=== PATIENT | male | born 1980 | race Two or more races ===

== ENCOUNTER 2017-12-19 04:01 | Inpatient (IN) | payer MEDICAID ==
[~2017-12-19] VITALS: Ht 167.6 cm; Wt 63.4 kg
[~2017-12-19 04:01] MED LIST: CHLO25CA10 PO; NO HOME MEDS; ONDA8TAB9 PO; PRED10TA PO
[2017-12-19 04:37] LABS: BASOPHILS % (AUTO) 0.4 % (0-1); EOSINOPHILS % (AUTO) 0.7 % (0-6); HEMATOCRIT 44.2 % (42.0-52.0); HEMOGLOBIN 15.6 g/dl (14.0-17.9); LYMPHOCYTES # (AUTO) 0.9 X10'3 (1.1-4.8); LYMPHOCYTES % (AUTO) 16.5 % (21-51); MEAN CORPUSCULAR HEMOGLOBIN 34.5 PG (27.0-31.0); MEAN CORPUSCULAR HGB CONC 35.2 % (33.0-36.5); MEAN CORPUSCULAR VOLUME 97.8 FL (78-98); MEAN PLATELET VOLUME 9.9 FL (7.4-10.4); MONOCYTES # (AUTO) 0.3 X10'3 (0-0.9); MONOCYTES % (AUTO) 6.5 % (2-12); NEUTROPHILS % (AUTO) 75.9 % (42-75); PLATELET COUNT 95 X10'3 (140-440); RED BLOOD COUNT 4.52 X10'6 (4.70-6.10); RED CELL DISTRIBUTION WIDTH 14.7 % (11.5-14.5); WHITE BLOOD COUNT 5.3 X10'3 (4.5-11.0)
[2017-12-19 04:46] LABS: INR 1.1 INR; PARTIAL THROMBOPLASTIN TIME 27 SECONDS (22-32); PROTHROMBIN TIME 11.5 SECONDS (9.0-12.0)
[2017-12-19 04:48] LABS: ALANINE AMINOTRANSFERASE 114 U/L (12-78); ALBUMIN/GLOBULIN RATIO 0.9 (1.1-1.5); ALKALINE PHOSPHATASE 215 IU/L (46-116); ANION GAP 14 (8-16); ASPARTATE AMINO TRANSFERASE 245 U/L (10-37); BILIRUBIN,TOTAL 4.1 MG/DL (0.1-1.0); BLOOD UREA NITROGEN 6 MG/DL (7-18); BUN/CREATININE RATIO 6.1 (5.4-32.0); CALCIUM 8.9 MG/DL (8.5-10.1); CHLORIDE 93 MMOL/L (99-107); CREATININE 0.98 MG/DL (0.60-1.10); GLUCOSE 170 MG/DL (70-104); SODIUM 132 MMOL/L (135-145); TOTAL CARBON DIOXIDE 24.7 MMOL/L (24-32); TOTAL PROTEIN 8.4 G/DL (6.4-8.2); eGFR 85 ML/MIN
[2017-12-19 04:50] LABS: POTASSIUM 2.8 MMOL/L (3.5-5.1)
[2017-12-19] MEDS ORDERED: potassium 10mEq/100ml NS w/LIDOcaine (10mg/bag) IV ONE ×2 (04:55→07:10)
[2017-12-19] MEDS ORDERED: LORazepam 2 mg/ml vial IV ONE ×2 (04:55→05:15)
[2017-12-19] MEDS ORDERED: normal saline 1000ML IV soln IVB ONE (04:55)
[2017-12-19] MEDS ORDERED: thiamine inj. 100 MG in normal saline 100ml IV soln 100 ML IV ONE (04:55)
[2017-12-19] MEDS: magnesium 1gm/100ml D5W IVPB 100 ML IV SCH ×4 (05:06→08:10)
[2017-12-19 05:15] LABS: ETHANOL < 0.010 GM/DL (0.0-0.010); LIPASE 133 U/L (73-393); MAGNESIUM 1.1 MG/DL (1.5-2.4)
[2017-12-19 07:19] LABS: OCCULT BLOOD STOOL POSITIVE (Neg)
[2017-12-19] MEDS ORDERED: dextrose 50%-water 50ml dispensing syringe IV PRN (07:30)
[2017-12-19] MEDS ORDERED: acetaminophen 325mg tablet PO PRN (07:30)
[2017-12-19] MEDS ORDERED: magnesium hydroxide 30ml (MOM) UD suspension PO PRN (07:30)
[2017-12-19] MEDS ORDERED: haloperidol 5mg tablet PO PRN (07:30)
[2017-12-19] MEDS ORDERED: thiamine 100mg/ml 2ml inj. IV ONE (07:30)
[2017-12-19] MEDS ORDERED: ondansetron/PF 4mg/2ml inj IV PRN (07:30)
[2017-12-19] MEDS ORDERED: mag hydrox/Alum hydrox/simeth 30ml oral suspension PO PRN (07:30)
[2017-12-19] MEDS ORDERED: haloperidol lactate 5mg/ml inj IM PRN (07:30)
[2017-12-19] MEDS ORDERED: ipratropium/albuterol 3ml nebule NEB PRN (07:30)
[2017-12-19] MEDS ORDERED: potassium Cl 20 mEq SR tablet PO PRN ×2 (07:45)
[2017-12-19] MEDS ORDERED: potassium Cl 40MEQ/NS 500ml 500 ML IV PRN ×2 (07:45)
[2017-12-19] MEDS ORDERED: magnesium 1gm/100ml D5W IVPB 100 ML IV PRN (07:45)
[2017-12-19] MEDS ORDERED: magnesium 4gm in 100ml NS 100 ML IV PRN (07:45)
[2017-12-19 08:15] VITALS: BP 153/83
[2017-12-19] MEDS: potassium Cl 20mEq in NS 1,000 ML IV SCH ×3 (10:52→19:39)
[2017-12-19] MEDS: famotidine/PF 10 mg/ml inj IV SCH ×2 (10:52→19:39)
[2017-12-19 12:11] VITALS: BP 126/87
[2017-12-19] MEDS ORDERED: oxyCODONE IR 5mg (immed. release) tablet PO PRN ×2 (16:25)
[2017-12-19 19:00] VITALS: BP 136/77
[2017-12-19 19:08] LABS: MAGNESIUM 2.2 MG/DL (1.5-2.4); POTASSIUM 3.6 MMOL/L (3.5-5.1)
[2017-12-20] VITALS: BP 133/76
[2017-12-20] MEDS: potassium Cl 20mEq in NS 1,000 ML IV SCH ×2 (04:37→14:16)
[2017-12-20 05:00] LABS: BASOPHILS % (AUTO) 0.5 % (0-1); EOSINOPHILS # (AUTO) 0.1 X10'3 (0-0.9); EOSINOPHILS % (AUTO) 2.4 % (0-6); HEMATOCRIT 40.3 % (42.0-52.0); HEMOGLOBIN 13.8 g/dl (14.0-17.9); LYMPHOCYTES # (AUTO) 1.4 X10'3 (1.1-4.8); LYMPHOCYTES % (AUTO) 24.8 % (21-51); MEAN CORPUSCULAR HGB CONC 34.3 % (33.0-36.5); MEAN CORPUSCULAR VOLUME 99.3 FL (78-98); MEAN PLATELET VOLUME 10.3 FL (7.4-10.4); MONOCYTES # (AUTO) 0.5 X10'3 (0-0.9); MONOCYTES % (AUTO) 8.9 % (2-12); NEUTROPHILS # (AUTO) 3.4 X10'3 (1.8-7.7); NEUTROPHILS % (AUTO) 63.4 % (42-75); PLATELET COUNT 70 X10'3 (140-440); RED BLOOD COUNT 4.06 X10'6 (4.70-6.10); RED CELL DISTRIBUTION WIDTH 13.8 % (11.5-14.5); WHITE BLOOD COUNT 5.4 X10'3 (4.5-11.0)
[2017-12-20 05:42] LABS: ALANINE AMINOTRANSFERASE 83 U/L (12-78); ALBUMIN 3.2 G/DL (3.4-5.0); ALKALINE PHOSPHATASE 170 IU/L (46-116); ANION GAP 9 (8-16); ASPARTATE AMINO TRANSFERASE 137 U/L (10-37); BLOOD UREA NITROGEN 4 MG/DL (7-18); CHLORIDE 100 MMOL/L (99-107); GLUCOSE 99 MG/DL (70-104); POTASSIUM 3.7 MMOL/L (3.5-5.1); SODIUM 134 MMOL/L (135-145); TOTAL CARBON DIOXIDE 25.3 MMOL/L (24-32); eGFR > 90 ML/MIN
[2017-12-20 05:58] LABS: ALBUMIN/GLOBULIN RATIO 0.8 (1.1-1.5)
[2017-12-20] MEDS ORDERED: ONDA4TAB12 PO (08:56)
[2017-12-20] MEDS ORDERED: ATI1T PO (08:56)
[2017-12-20] MEDS ORDERED: FAMO20TA8 PO (08:56)
[2017-12-20] MEDS: famotidine/PF 10 mg/ml inj IV SCH (09:24)
[2017-12-20 11:00] VITALS: BP 158/84
[2017-12-20] MEDS: LORazepam 2 mg/ml vial IV PRN ×2 (12:23→13:54)
[2017-12-20] MEDS ORDERED: chlordiazePOXIDE 25mg capsule PO PRN (14:15)
[2017-12-21] MEDS ORDERED: LORazepam 1 MG tablet PO PRN (07:30)
[2017-12-21] MEDS ORDERED: LORazepam 2 mg/ml vial IV PRN (07:30)
[2017-12-23] MEDS ORDERED: LORazepam 1 MG tablet PO PRN (07:30)
[2017-12-23] MEDS ORDERED: LORazepam 2 mg/ml vial IV PRN (07:30)
== END 2017-12-20 16:26 | disposition left against medical advice (07) | DRG 251 ==
LOC: ER 04:01 → ED HOLD 07:27 → SUR 3N 08:11 → UNDODISIN 12-20 10:37 → SUR 3N 12-20 11:29
PROVIDERS: ADMIT Family Medicine; ATTEND Family Medicine
DX: R10.12 Left upper quadrant pain (principal); F10.231 Alcohol dependence with withdrawal delirium; E83.41 Hypermagnesemia; K92.2 Gastrointestinal hemorrhage, unspecified; R11.2 Nausea with vomiting, unspecified; E87.6 Hypokalemia; F41.9 Anxiety disorder, unspecified; Z53.21 Procedure and treatment not carried out due to patient leaving prior to being seen by health care provider; R73.9 Hyperglycemia, unspecified; R74.8 Abnormal levels of other serum enzymes; Z88.1 Allergy status to other antibiotic agents; Z88.8 Allergy status to other drugs, medicaments and biological substances
CPT/HCPCS: 36415; 71045; 76700; 80053; 80320; 82140; 82272; 83690; 83735; 84132; 84484; 85025; 85610; 85730; 87070; 93005; 94760; J1630; J2060; J3411; J3480; J3490; J7030

== ENCOUNTER 2020-05-05 14:52 | Emergency (ER) | payer MEDICAID ==
[~2020-05-05] VITALS: Ht 170.2 cm; Wt 115.5 kg
[~2020-05-05 14:52] MED LIST changes: +ATI1T PO; -CHLO25CA10 PO; +FAMO20TA8 PO; -NO HOME MEDS; +ONDA4TAB12 PO; -ONDA8TAB9 PO; -PRED10TA PO
[2020-05-05] MEDS ORDERED: acetaminophen 325mg tablet PO ONE (15:15)
[2020-05-05 15:37] VITALS: BP 123/84
== END 2020-05-05 17:50 | disposition home or self-care (01) ==
LOC: ER 14:53
DX: S40.022A Contusion of left upper arm, initial encounter (principal); Z72.89 Other problems related to lifestyle; Z88.1 Allergy status to other antibiotic agents; Z88.8 Allergy status to other drugs, medicaments and biological substances; Z79.899 Other long term (current) drug therapy; X58.XXXA Exposure to other specified factors, initial encounter; Y93.89 Activity, other specified; Y92.89 Other specified places as the place of occurrence of the external cause; Y99.8 Other external cause status
CPT/HCPCS: 93005; 93971; 99284